=== PATIENT | female | born 1995 | race Caucasian/White ===

== ENCOUNTER 2020-07-21 02:58 | Emergency (ER) | payer OTHER ==
[~2020-07-21] VITALS: Ht 160 cm; Wt 49.9 kg
--- NOTE | 2020-07-21 03:00 | NUR ---
BIBS FOR C/O " I FEEL LKE I WAS GOING TO HAVE A SEIZURE EPISODE" "I HAD AN EPISODE OF BEING SUPER HOT AND SUPER COLD AND THAT LASTED ABOUT 30 SECONS" " I FELT LIKE I COULDN'T MOVE" PER PT SHE HAS A HX OF SEIZURE IN THE PAST BU T IS NOT TAKING ANY MEDICATION FOR SEIZURE. SHE ALSO REPORTED HX OF ANXIETY WHICH SHE TAKES NEURONTIN FOR IT. PT APPEARS VERY ANXIOUS , +N/V, AND HYPER VENTILATING. PT WAS ASSISTED TO THE ER BED 3 AND WAS PLACED ON A MONITOR . VSS. WILL CONT TO MONITOR.
[2020-07-21] MEDS ORDERED: LORAZEPAM INJ 2 MG/ML VIAL ONE (03:08)
[2020-07-21] MEDS ORDERED: ONDANSETRON HCL/PF 4 MG/2 ML VIAL ONE (03:08)
[2020-07-21] MEDS: ONDANSETRON HCL/PF 4 MG/2 ML VIAL IVP ONE (03:10)
[2020-07-21] MEDS: IV NS 0.9% 1,000 ML BAG IV ONE (03:10)
[2020-07-21] MEDS: LORAZEPAM INJ 2 MG/ML VIAL IVP ONE (03:10)
[2020-07-21 03:14] LABS: BASOPHILS % (AUTO) 0.5 % (0.0-2.0); EOSINOPHILS % (AUTO) 0.1 % (0.0-6.0); HEMATOCRIT 42 % (33-45); HEMOGLOBIN 14.1 g/dL (11.5-14.8); LYMPHOCYTES % (AUTO) 10.2 % (20.0-44.0); MEAN CORPUSCULAR HGB CONC 34 g/dl (31.0-36.0); MEAN CORPUSCULAR VOLUME 97 fL (82-100); MONOCYTES # (AUTO) 0.2 /CMM (0.1-1.30); MONOCYTES % (AUTO) 2.1 % (2.0-12.0); NEUTROPHILS # (AUTO) 8.3 /CMM (1.8-8.9); NEUTROPHILS % (AUTO) 87.1 % (43.0-81.0); PLATELET COUNT (AUTO) 295 /CMM (150-450); RED BLOOD CELL COUNT(AUTO) 4.28 MIL/uL (4.0-5.2); WHITE BLOOD COUNT (AUTO) 9.5 K/uL (4.3-11.0)
[2020-07-21 03:23] LABS: CREATININE 0.9 mg/dL (0.6-1.3); POTASSIUM 3.8 mmol/L (3.5-5.1)
--- NOTE | 2020-07-21 04:18 | NUR ---
Patient is resting comfortably in bed with eyes closed. Easily aroused. reported feeling better. VSS. will cont to monitor
--- NOTE | 2020-07-21 06:22 | NUR ---
pt is medically stable for D/C. IV removed. Catheter intact and site benign. Pressure and 4x4 applied to site. No bleeding noted.Patient discharged to home in stable condition. Written and verbal after care instructions given. Patient verbalizes understanding of instruction. pt will get an UBER back home.
[2020-07-21 06:33] VITALS: BP 99/58
== END 2020-07-21 06:34 | disposition home or self-care (01) ==
LOC: ER 03:00
DX: G40.909 Epilepsy, unspecified, not intractable, without status epilepticus (principal); F41.9 Anxiety disorder, unspecified
CPT/HCPCS: 36415; 80048; 85025; 96361; 96374; 96375; 99285; J2060; J2405; J7030